=== PATIENT | female | born 1940 | race Caucasian/White ===

== ENCOUNTER 2018-06-26 07:49 | Emergency (ER) | payer OTHER ==
--- NOTE | 2018-06-26 08:31 | EDPHY ---
H & P Stated Complaint: intermittent left arm pain during the night last night Time Seen by Provider: 06/26/18 08:08 HPI/ROS: CHIEF COMPLAINT: Left arm pain Limitations: Dementia, patient is unable to recall events of last night HISTORY OF PRESENT ILLNESS: 78-year-old female with Alzheimer's presents with left arm pain. This morning, pt emailed her daughter and told her daughter that she was awake most of the night because of left arm pain. Daughter checked on her at 0600, pt had an episode of pain, appeared sudden in onset and lasted approx 1-2 minutes. No pain now. No history of cardiopulmonary disease. No recent injury. REVIEW OF SYSTEMS: Unable to reliably determine - Medical/Surgical History Hx Asthma: No Hx Chronic Respiratory Disease: No Hx Diabetes: No Hx Cardiac Disease: Yes Hx Renal Disease: No Hx Cirrhosis: No Hx Alcoholism: No Hx HIV/AIDS: No Hx Splenectomy or Spleen Trauma: No Other PMH: HTN, alzheimers - Social History Smoking Status: Never smoked - Physical Exam Exam: General Appearance: Alert, pleasant Eyes: Pupils equal and round, no conjunctival pallor ENT, Mouth: Right periorbital ecchymosis, Mucous membranes moist Neck: Normal inspection, no tenderness, range of motion without pain Respiratory: Normal inspection, no chest wall tenderness, lungs are clear to auscultation Cardiovascular: Regular rate and rhythm Gastrointestinal: Abdomen is soft and nontender Neurological: A&O, motor 5/5, sensory intact to light touch Skin: Warm and dry, no rash Extremities: Left upper extremity-normal inspection, no tenderness, range of motion without pain of shoulder/elbow/hand Vascular: 2+ radial pulses Psychiatric: Mood and affect normal Constitutional: Initial Vital Signs Temperature (C) 36.7 C 06/26/18 07:51 Heart Rate 70 06/26/18 07:51 Respiratory Rate 18 06/26/18 07:51 Blood Pressure 166/105 H 06/26/18 07:51 O2 Sat (%) 96 06/26/18 07:51 O2 Delivery Mode Room Air Allergies/Adverse Reactions: pain meds Allergy (Uncoded 06/26/18 07:51) Home Medications: Medication Instructions Recorded NK [No Known Home Meds] 06/26/18 Medical Decision Making - Diagnostics EKG Interpretation: EKG interpreted by me reveals first-degree AV block, rate 54, no ST or T segment changes. Interpretation: Abnormal EKG Imaging Results: Chest X-Ray 06/26/18 07:57 Impression: 1. Mild cardiomegaly with atherosclerotic tortuous aorta. 2. Mild chronic bronchitis. 3. No definite pneumonia, pleural effusion, or pneumothorax. Imaging: I viewed and interpreted images myself ED Course/Re-evaluation: This patient presents with intermittent left upper extremity pain. History is challenging because of dementia and inability to recall any of the events of last night. Physical exam is normal and there is no evidence of musculoskeletal etiology of pain. ? cervical radiculopathy, concern for cardiac etiology. Stat EKG reveals no evidence of ischemia or dysrhythmia and initial troponin is normal. Shared decision making with the patient's daughter. Will repeat EKG and troponin at 11:00 a.m. 11am: repeat EKG and troponin unremarkable. d/w pt and daughter. Pt asymptomatic. Would like to go home. Follow up with Cardiology as an outpatient. Warning signs discussed. Differential Diagnosis: Differential diagnosis includes does not limited to acute coronary syndrome, cervical radiculopathy, neurovascular compromise, fracture, PTX - Data Points Laboratory Results: Laboratory Results 06/26/18 08:05 06/26/18 08:05 Point of Care Test Results: Chemistry 06/26/18 06/26/18 11:03 08:14 POC Troponin I 0.00 ng/mL ng/mL 0.00 ng/mL ng/mL (0.00-0.08) (0.00-0.08) Departure - Departure Disposition: Home, Routine, Self-Care Clinical Impression: Left upper arm pain Condition: Good Instructions: Arm Pain (ED) Additional Instructions: 1. Based upon the testing done in the Emergency Department today we see no evidence of a heart attack. 2. We are unable to fully exclude coronary artery disease based upon the testing available in the Emergency Department. 3. For this reason, we would like you to be seen by cardiology for consideration of additional testing within the next 3 days. 4. Please contact the [facility] developer you have been referred to schedule this appointment as soon as possible. Their offices are typically open from 8:30am- 5pm M-F. 5. Please return to the Emergency Department immediately for any recurrent chest /arm pain, difficulty breathing or other concerns. Referrals: ARIANE HUDSON [Other] - As per Instructions Jay Owens MD [Medical Doctor] - As per Instructions (Call to make an appointment. )
[2018-06-26 08:33] LABS: PLATELET COUNT 161 10^3/uL (150-400)
[2018-06-26 11:29] VITALS: BP 132/70
--- NOTE | 2018-06-26 15:27 | CPEKG ---
Test Reason : OPEN Blood Pressure : / mmHG Vent. Rate : 058 BPM Atrial Rate : 058 BPM P-R Int : 224 ms QRS Dur : 097 ms QT Int : 424 ms P-R-T Axes : 022 -05 033 degrees QTc Int : 417 ms Sinus rhythm Prolonged UT interval Confirmed by Yady Watson ([id number]) on 06/26/2018 3:27:18 PM Referred By: YADY WATSON Confirmed By:Yady Watson
--- NOTE | 2018-06-26 15:28 | CPEKG ---
Test Reason : OPEN Blood Pressure : / mmHG Vent. Rate : 054 BPM Atrial Rate : 054 BPM P-R Int : 226 ms QRS Dur : 100 ms QT Int : 421 ms P-R-T Axes : 052 003 036 degrees QTc Int : 399 ms Sinus rhythm Prolonged MT interval Confirmed by Yday Plaza ([id number]) on 06/26/2018 3:28:06 PM Referred By: Yady Plaza Confirmed By:Yady Plaza
== END 2018-06-26 11:35 | disposition home or self-care (01) ==
DX: M79.602 Pain in left arm (principal); G30.9 Alzheimer's disease, unspecified; F02.80 Dementia in other diseases classified elsewhere, unspecified severity, without behavioral disturbance, psychotic disturbance, mood disturbance, and anxiety
CPT/HCPCS: 84484-ER

== ENCOUNTER → 2018-07-21 | Outpatient (CLI) | payer OTHER | LOC: FCPNEURO 21:30 | PROVIDERS: ATTEND Student in an Organized Health Care Education/Training Program | DX: G47.33 Obstructive sleep apnea (adult) (pediatric) (principal) ==

== ENCOUNTER → 2018-07-21 | Outpatient (CLI) | payer OTHER | LOC: BHFA 08:30 | PROVIDERS: ATTEND Internal Medicine Cardiovascular Disease | DX: R07.9 Chest pain, unspecified (principal); I10 Essential (primary) hypertension; G47.33 Obstructive sleep apnea (adult) (pediatric) | CPT/HCPCS: 78452; 93017; 93306; 95811; A9500; J2785 ==